=== PATIENT | male | born 1960 | race Caucasian/White ===

== ENCOUNTER 2022-02-06 12:19 | Day surgery (SDC) | payer OTHER, SELFPAY ==
[2022-02-06] VITALS (17 sets, daily range): BP systolic 96–144; BP diastolic 53–93; PULSE 52–71; RESP 16–20; TEMP 36.1–36.6; O2SAT 94–98; BMI 71.4
[2022-02-06] MEDS: LACTATED RINGERS 1000 ML 1,000 ML 75 ML IV ×2 (13:00→17:19)
[2022-02-06] MEDS: SODIUM CHLORIDE 0.9 % (FLUSH) 10 ML SYRINGE IVF (13:11)
[2022-02-06] MEDS: CEFAZOLIN 1 GM inj 3 GM IVP (14:20)
[2022-02-06] MEDS: KETOROLAC 15 MG/ML inj IVP (14:51)
[2022-02-06] MEDS: BUPIVACAINE 0.25% 30 ML 15 ML INJECTION (14:56)
--- NOTE | 2022-02-06 15:29 | W.ANESCHARGE ---
Anesthesia Charges Start Date/Time Anesthesia Start Date: 02/06/22 Anesthesia Start Time: 14:09 Stop Date/Time Anesthesia Stop Date: 02/06/22 Anesthesia Stop Time: 15:24 Summary Emergency: No
--- NOTE | 2022-02-06 15:39 | P.GSOP_ITS ---
Operative Note Date of procedure: 02/06/22 Type of Procedure: Umbilical hernia repair Procedure Description: After discussing the risks and benefits of the procedure, the patient signed informed consent.? The operative site was marked and the patient was brought to the operating room and placed on the operating table in supine position.? Care was taken to pad the patient's pressure points.?? The patient was then intubated by anesthesia.?? The operative site was then prepped and draped in the usual sterile fashion.? A time-out was then performed. Local anesthetic was injected into the fascia, skin and subcutaneous tissues. A curvilinear incision was made at the superior aspect of the umbilicus. Dissection was carried down into the subcutaneous tissue using cautery. The hernia sac was encountered and it contained incarcerated fat with some ischemic tissue. Dissection was taken down to the fascia, and the umbilical stalk was carefully dissected off of the hernia sac. The hernia was incarcerated. There was clearly a hematoma within the sac. The sac was entered and then it appeared as though a small knuckle of omentum had become incarcerated and infarcted. This was ligated and divided with ties. The infarcted portions of omentum were discarded. The hernia sac and its preperitoneal fat were too large to reduce. Similarly, this was ligated and divided. This was discarded. The fascial edges were then cleared circumferentially. The hernia was 1 cm in size and so the decision was made to close this primarily. Because of the patient's cellulitis, I did not want to use permanent suture and risk chronic suture colonization and therefore the hernia was closed with a combination of 1. PDS sutures in a vest over pants fashion, with an 0 Vicryl simple interrupted sutures in between and on the edges. The umbilical skin at the superior aspect over the hernia had some skin breakdown. Once the hernia had been reduced and repaired I noted that this aspect of the umbilical skin appeared purple and ischemic. I then used a knife to excise this down to healthy bleeding skin. There was still sufficient skin to completely close the wound and recreate the umbilicus. The umbilicus was reapproximated to the fascia. The skin was then cl osed with running absorbable suture. A sterile dressing was then applied. ? The patient was then woken and transported to the recovery area in stable condition. ? The patient tolerated the procedure well. Findings: Strangulated umbilical hernia with infarcted omentum and surrounding cellulitis. Anesthesia: GETA Surgeon: Mary Choi MD Estimated blood loss (mL): 5 Condition: stable Disposition: PACU
--- NOTE | 2022-02-06 16:38 | W.ANESCHARGE ---
Anesthesia Charges Start Date/Time Anesthesia Start Date: 02/06/22 Anesthesia Start Time: 14:09 Stop Date/Time Anesthesia Stop Date: 02/06/22 Anesthesia Stop Time: 15:24 Summary Emergency: No
[2022-02-06] MEDS: HYDROCODONE-ACETAMIN 5-325 MG 1 TAB PO (16:44)
== END 2022-02-06 17:18 | disposition home or self-care (01) ==
PROVIDERS: Visit Provider Surgery
PROC: (CPT 49587; principal; 2022-02-06 13:50)
DX: K42.0 Umbilical hernia with obstruction, without gangrene (principal); L03.311 Cellulitis of abdominal wall
CPT/HCPCS: 49587; 830; 832; A9270; J0330; J0690; J1100; J1170; J1885; J2405; J2704; J3010; J3490; J7120

== ENCOUNTER 2022-03-12 07:03 | Outpatient (CLI) | payer OTHER, SELFPAY ==
--- NOTE | 2022-03-12 07:15 | US_ITS ---
Final Report Patient: MADELINE HURST Facility:?[facility] Patient ID:?[id number] Site Patient ID:?[id number]. Site :?[id number] Study:?US Pelvis -03/12/2022 9:45:28 AM Ordering Physician:?Crista De La Garza Final Report: Indication: H/O UMBILICAL HERNIA REPAIR 1.5 MONTHS AGO, NOW BILATERAL LOW PELVIC PAIN PULLING SENSATION Technique: Grayscale ultrasound of the lower abdominal wall performed in the area of concern with and without Valsalva. Comparison: None Findings: No evidence of hernia. No fluid collection. Impression: No sonographic evidence of abdominal wall hernia. Dictated by Pablo Sparrow MD @ 03/12/2022 10:38:46 AM (Electronic Signature)
--- NOTE | 2022-03-12 07:15 | CRLHL7_ITS ---
For Patients: As a result of the Century Cures Act, medical imaging exams and procedure reports are released immediately into your electronic medical record. You may view this report before your referring provider. If you have questions, please contact your health care provider. INDICATION: H/O MILD LT TESTICULAR PAIN, ?VARICOCELE ON PHYSICAL EXAM? COMPARISON: none TECHNIQUE: Galarza scale imaging was performed of the scrotum. In addition color Doppler and spectral Doppler analysis was performed of the testes. FINDINGS: The testes demonstrate normal arterial and venous blood flow on color Doppler and spectral Doppler analysis. The testes have uniform echogenicity with no evidence of a suspicious mass or area of inflammation. The right testis measures 3.8 x 2.0 x 4.4 cm in size and the left testis measures 3.2 x 2.0 x 3.5 cm. The epididymis appears normal bilaterally. Left varicocele noted. Small left hydrocele. IMPRESSION: Left varicocele. Normal testicles. Dictated by Pablo Sparrow MD @ 03/12/2022 10:40:45 AM (Electronically Signed)
== END 2022-03-12 07:04 | disposition home or self-care (01) ==
LOC: US 07:04
PROVIDERS: Visit Provider Family Medicine
DX: I86.1 Scrotal varices; R10.9 Unspecified abdominal pain
CPT/HCPCS: 76705; 76857; 76870; 93976

== ENCOUNTER 2025-02-15 07:59 | Outpatient (CLI) | payer MEDICARE, SELFPAY ==
--- NOTE | 2025-02-15 08:15 | CRLHL7_ITS ---
For Patients: As a result of the Century Cures Act, medical imaging exams and procedure reports are released immediately into your electronic medical record. You may view this report before your referring provider. If you have questions, please contact your health care provider. Technique: Double-contrast esophagram performed after the uneventful administration of effervescent crystals and thick barium followed by thin barium. Fluoroscopy time 55 seconds. Indication: Dysphagia Comparison: None. Findings: Spontaneous gastroesophageal reflux noted to the proximal esophagus. Esophageal mucosal irregularity involving the mid and distal esophagus. No stricture or ulcer. No hernia. Delayed esophageal motility. Impression: Significant spontaneous reflux to the proximal esophagus with moderate associated esophageal irregularity involving the mid and distal esophagus consistent with reflux esophagitis. Delayed esophageal motility. Would consider EGD for further evaluation for possible underlying Reed`s. Dictated by Pablo Sparrow MD @ 02/15/2025 1:16:45 PM (Electronically Signed)
== END 2025-02-15 08:00 | disposition home or self-care (01) ==
PROVIDERS: Visit Provider Otolaryngology
DX: R13.10 Dysphagia, unspecified (principal)
CPT/HCPCS: 74221